=== PATIENT | female | born 1980 | race Two or more races ===

== ENCOUNTER 2022-08-18 21:02 | Inpatient (IN) | payer OTHER, MEDICAID ==
[~2022-08-18] VITALS: Ht 182.9 cm; Wt 84.9 kg
[2022-08-18 22:00] VITALS: BP 130/89
[2022-08-18] MEDS ORDERED: LEVE250T18 PO (23:05)
[2022-08-18] MEDS ORDERED: ALBU108A5 IN (23:05)
[2022-08-18] MEDS ORDERED: GABA-1250 PO (23:05)
[2022-08-18] MEDS ORDERED: BUPR10DI TD (23:05)
[2022-08-18] MEDS ORDERED: OXYC-963 (23:05)
[2022-08-18 23:08] VITALS: BP 130/89
[2022-08-19] MEDS ORDERED: TEMAZEPAM 15 MG CAP PO PRN (03:00)
[2022-08-19] MEDS ORDERED: ONDANSETRON HCL 4 MG/2 ML VIAL IV PRN (03:00)
[2022-08-19] MEDS ORDERED: ACETAMINOPHEN 325 MG TAB PO PRN (03:00)
[2022-08-19] MEDS ORDERED: HYDROcodone-ACET 5/325MG TAB PO PRN (03:00)
[2022-08-19 04:20] LABS: Basophils # (auto) 0.1 10 ^3/uL (0-0.2); Basophils % (auto) 0.7 % (0.0-2.0); Eosinophils # (auto) 0.3 10 ^3/uL (0-0.8); Eosinophils % (auto) 3.1 % (0.0-7.0); Hematocrit 34.9 % (36.0-46.0); Hemoglobin 11.4 g/dL (12.2-16.2); Lymphocytes # (auto) 1.4 10 ^3/uL (0.4-5.4); Lymphocytes % (auto) 15.8 % (10.0-50.0); Mean Corpuscular Hgb Conc. 32.6 g/dL (32.0-36.0); Mean Corpuscular Volume 89.1 fL (80.0-100.0); Monocytes # (auto) 0.9 10 ^3/uL (0-1.3); Monocytes % (auto) 9.6 % (0.0-12.0); Neutrophils # (auto) 6.3 10 ^3/uL (1.6-8.6); Neutrophils % (auto) 70.8 % (37.0-80.0); Red Blood Cells 3.92 10^6/uL (4.0-5.20); Red Cell Distribution Width 14.6 % (11.8-14.3); White Blood Cell 8.9 10^3/uL (4.4-10.8)
[2022-08-19 04:36] LABS: Albumin 2.3 g/dL (3.4-5.0); Potassium 3.9 mmol/L (3.5-5.1)
[2022-08-19 04:42] LABS: BUN/Creatinine Ratio 15.5 (10.0-20.0); Bilirubin, Total 0.2 mg/dL (0.2-1.0); Total Protein 6.4 g/dL (6.4-8.2)
[2022-08-19 05:00] VITALS: BP 125/79
[2022-08-19] MEDS: cefTRIAXone 1GM/50ML D5W 50 ML IV SCH (05:50)
[2022-08-19] MEDS ORDERED: CLINDAMYCIN 600MG IV 50 ML IV SCH (06:00)
[2022-08-19 06:59] LABS: Urine Bacteria NONE SEEN /hpf (None Seen); Urine Blood Negative /uL (Negative); Urine Mucus FEW (None Seen); Urine Specific Gravity 1.019 (1.001-1.035); Urine WBC 1 /hpf (0 - 5)
[2022-08-19 09:05] VITALS: BP 139/93
[2022-08-19] MEDS ORDERED: VANCOMYCIN 1GM/250ML 250 ML IV ONE ×2 (11:15→16:15)
[2022-08-19] MEDS ORDERED: VANCOMYCIN PER PHARMACY 0 MG IV SCH (11:15)
[2022-08-19] MEDS: MORPHINE SULFATE INJ 2 MG/ml SYRG IV PRN ×2 (11:32→20:53)
[2022-08-19 13:13] VITALS: BP 123/84
[2022-08-19] MEDS: GABAPENTIN 300 MG CAP PO SCH ×2 (14:09→21:47)
[2022-08-19 16:44] VITALS: BP 135/78
[2022-08-19] MEDS: OXYCODONE W/ ACETAMINOPHEN 5/325MG TABLET PO PRN (17:40)
[2022-08-19] MEDS: VANCOMYCIN 1GM/250ML 250 ML IV SCH (17:41)
[2022-08-19] MEDS: levETIRAcetam 500 MG TAB PO SCH (21:47)
[2022-08-19 22:00] VITALS: BP 109/69
[2022-08-20] MEDS: OXYCODONE W/ ACETAMINOPHEN 5/325MG TABLET PO PRN (02:51)
[2022-08-20] MEDS: VANCOMYCIN 1GM/250ML 250 ML IV SCH ×3 (02:53→20:52)
[2022-08-20 05:00] VITALS: BP 113/78
[2022-08-20] MEDS: GABAPENTIN 300 MG CAP PO SCH ×3 (05:14→21:01)
[2022-08-20] MEDS: MORPHINE SULFATE INJ 2 MG/ml SYRG IV PRN ×2 (06:25→14:04)
[2022-08-20 07:47] LABS: Calcium 8.3 mg/dL (8.5-10.1)
[2022-08-20 07:49] LABS: BUN/Creatinine Ratio 16.3 (10.0-20.0)
[2022-08-20 09:21] VITALS: BP 106/44
[2022-08-20] MEDS: levETIRAcetam 500 MG TAB PO SCH ×2 (10:53→21:01)
[2022-08-20] MEDS: cefTRIAXone 1GM/50ML D5W 50 ML IV SCH (10:53)
[2022-08-20] MEDS: PANTOPRAZOLE 40 MG TAB PO SCH (10:53)
[2022-08-20] MEDS ORDERED: OXYCODONE W/ ACETAMINOPHEN 5/325MG TABLET PO PRN (12:15)
[2022-08-20 14:46] VITALS: BP 121/75
[2022-08-20 16:00] VITALS: BP 140/94
[2022-08-20 22:00] VITALS: BP 115/73
[2022-08-21] MEDS: MORPHINE SULFATE INJ 2 MG/ml SYRG IV PRN ×2 (02:44→09:38)
[2022-08-21 05:00] VITALS: BP 119/62
[2022-08-21] MEDS: VANCOMYCIN 1GM/250ML 250 ML IV SCH ×2 (05:09→12:58)
[2022-08-21] MEDS: GABAPENTIN 300 MG CAP PO SCH ×2 (05:22→12:58)
[2022-08-21 09:00] VITALS: BP 144/90
[2022-08-21] MEDS: cefTRIAXone 1GM/50ML D5W 50 ML IV SCH (09:37)
[2022-08-21] MEDS: levETIRAcetam 500 MG TAB PO SCH (09:38)
[2022-08-21] MEDS: PANTOPRAZOLE 40 MG TAB PO SCH (09:38)
[2022-08-21 10:08] VITALS: BP 126/68
== END 2022-08-21 16:30 | disposition left against medical advice (07) | DRG 602 ==
LOC: CENTRAL 22:37 → UNDOADMIN 22:37 → CENTRAL 08-19 02:50
PROVIDERS: ADMIT Nurse Practitioner; ATTEND Internal Medicine
DX: L03.114 Cellulitis of left upper limb (principal); G82.50 Quadriplegia, unspecified; G40.909 Epilepsy, unspecified, not intractable, without status epilepticus; G89.29 Other chronic pain; S51.002A Unspecified open wound of left elbow, initial encounter; X58.XXXA Exposure to other specified factors, initial encounter; Z53.21 Procedure and treatment not carried out due to patient leaving prior to being seen by health care provider; J45.909 Unspecified asthma, uncomplicated; S82.832A Other fracture of upper and lower end of left fibula, initial encounter for closed fracture; Z82.49 Family history of ischemic heart disease and other diseases of the circulatory system; Z83.3 Family history of diabetes mellitus; Z98.1 Arthrodesis status; Y93.89 Activity, other specified; Y92.89 Other specified places as the place of occurrence of the external cause; Y99.8 Other external cause status
CPT/HCPCS: 36415; 73600; 73700; 80048; 80053; 80202; 81001; 85025; 87081; G0378; J0696

== ENCOUNTER 2024-02-08 20:23 | Inpatient (IN) | payer MEDICARE, MEDICAID ==
[~2024-02-08] VITALS: Ht 152.4 cm; Wt 96.0 kg
[~2024-02-08 20:23] MED LIST: ALBU108A5 IN; BUPR10DI TD; GABA-1250 PO; LEVE250T18 PO; OXYC-963
--- NOTE | 2024-02-08 20:35 | ED.PDOC ---
History of Present Illness HPI Comments 43-year-old female with PMHx Osteomyelitis brought in by EMS presents with a chief complaint of back pain, incontinence, and numbness to her bilateral legs. Patient states that her back pain started from her ribs bilaterally, travelled down to her hips and down her bilateral legs. Patient reports that her legs feel numb and that she also has not been having control of her bowels and bladder. Patient mentions that she took Tylenol and Motrin, but had no relief of symptoms. Patient denies any trauma. Time Seen by MD: 20:26 Reviewed Notes: Medications, Allergies Allergies: Coded Allergies: NO KNOWN ALLERGIES (Unverified , 08/19/22) Home Meds Reported Medications Albuterol Sulfate (Albuterol Sulfate Hfa) 108 Mcg/Act Aer, 108 MCG IN, AER 08/18/22 Oxycodone W/ Acetaminophen (Oxycodone/Acetaminophen 10-300 mg) 1 Tab Tab 08/18/22 Buprenorphine (BUTRANS) 10 Mcg/Hr Dis, 15 MCG TD QWEEKLY, DIS 08/18/22 Levetiracetam (Keppra) 250 Mg Tab, 250 MG PO BID for 30 Days, MG 08/18/22 Gabapentin (Gabapentin) 300 Mg Cap, 300 MG PO TID for 30 Days, MG 08/18/22 Information Source: Patient Mode of Arrival: EMS Severity: Moderate Timing: Days Duration: Since onset Prehospital treatment: None Past Medical History Past Medical History (Other): Osteomyletis Surgical History: Denies all surgeries VALIDATION MANAGER History: Denies all VALIDATION MANAGER Hx Family History Family History: Reviewed,noncontributory to illness Social History Smoker: Non-Smoker Alcohol: Denies ETOH Use Drugs: Denies Drug Use Lives In: Home Constitutional: denies: chills, diaphoresis, fatigue, fever, malaise, sweats, weakness, others EENTM: denies: blurred vision, double vision, ear bleeding, ear discharge, ear drainage, ear pain, ear ringing, eye pain, eye redness, hearing loss, mouth pain, mouth swelling, nasal discharge, nose bleeding, nose congestion, nose pain, photophobia, tearing, throat pain, throat swelling, voice changes, others Respiratory: denies: cough, hemoptysis, orthopnea, SOB at rest, shortness of breath, SOB with excertion, stridor, wheezing, others Cardiovascular: denies: chest pain, dizzy spells, diaphoresis, Dyspnea on exertion, edema, irregular heart beat, left arm pain, lightheadedness, palpitations, PND, syncope, others Gastrointestinal: denies: abdomen distended, abdominal pain, blood streaked bowels, constipated, diarrhea, dysphagia, difficulty swallowing, hematemesis, melena, nausea, poor appetite, poor fluid intake, rectal bleeding, rectal pain, vomiting, others Genitourinary: reports: incontinence; denies: abnormal vagina bleeding, burning, dyspareunia, dysuria, flank pain, frequency, hematuria, pain, , vagina discharge, urgency, others Neurological: reports: left sided weakness, numbness; denies: dizziness, fainting, headache, left sided numbness, paresthesia, pre-existing deficit, right sided numbness, right sided weakness, seizure, speech problems, tingling, tremors, weakness, others Musculoskeletal: reports: back pain; denies: gout, joint pain, joint swelling, muscle pain, muscle stiffness, neck pain, others Integumetry: denies: bruises, change in color, change in hair/nails, dryness, laceration, lesions, lumps, rash, wounds, others Allergic/Immunocompromised: denies: Difficulty Healing, Frequent Infections, Hives, Itching, others Hematologic/Lymphatic: denies: anemia, blood clots, easy bleeding, easy bruising, swollen glands, others Endocrine: denies: excessive hunger, excessive sweating, excessive thirst, excessive urination, flushing, intolerance to cold, intolerance to heat, unexplained weight gain, unexplained weight loss, others Psychiatric: denies: anxiety, bipolar disorder, depression, hopeless, panic disorder, schizophrenia, sleepless, suicidal, others All Other Systems: Reviewed and Negative Physical Exam General Appearance: No Apparent Distress, Normal HEENT: Normal ENT Inspection, Pharynx Normal, TMs Normal Neck: Full Range of Motion, Non-Tender, Normal, Normal Inspection Respiratory: Chest Non-Tender, Lungs Clear, No Accessory Muscle Use, No Respiratory Distress, Normal Breath Sounds Cardiovascular: No Edema, No JVD, No Murmur, No Gallop, Normal Peripheral Pulses, Regular Rate/Rhythm Breast Exam: Deferred Gastrointestinal: No Organomegaly, Non Tender, No Pulsatile Mass, Normal Bowel Sounds, Soft Genitalia: Deferred Pelvic: Deferred Rectal: Deferred Extremities: No calf tenderness, Normal capillary refill, Normal inspection, Normal range of motion, Non-tender, No pedal edema Musculoskeletal : Apperance: Normal Neurologic: Alert, 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 Was a procedure done?: No Differential Dx Considerations may include: Muscle spasm, spinal epidural abscess, cauda equina, lumbar fracture X-Ray, Labs, Meds, VS Vital Signs Date Time Temp Pulse Resp B/P (MAP) Pulse Ox O2 Delivery O2 Flow Rate FiO2 02/08/24 22:57 95 20 140/92 02/08/24 22:09 86 13 140/92 02/08/24 21:45 99 22 96 Room Air 02/08/24 21:45 99 22 146/92 (110) 96 02/08/24 20:35 98.9 120 18 148/100 (116) 100 Lab Test 02/08/24 20:47 Range/Units White Blood Count 7.5 4.4-10.8 10^3/uL Red Blood Count 4.58 4.0-5.20 10^6/uL Hemoglobin 13.5 12.2-16.2 g/dL Hematocrit 40.6 36.0-46.0 % Mean Corpuscular Volume 88.7 80.0-100.0 fL Mean Corpuscular Hemoglobin 29.4 28.0-32.0 pg Mean Corpuscular Hemoglobin Concent 33.2 32.0-36.0 g/dL Red Cell Distribution Width 16.3 H 11.8-14.3 % Platelet Count 210 140-450 10^3/uL Mean Platelet Volume 8.9 6.9-10.8 fL Neutrophils (%) (Auto) 69.9 37.0-80.0 % Lymphocytes (%) (Auto) 18.9 10.0-50.0 % Monocytes (%) (Auto) 7.7 0.0-12.0 % Eosinophils (%) (Auto) 2.4 0.0-7.0 % Basophils (%) (Auto) 1.1 0.0-2.0 % Neutrophils # (Auto) 5.2 1.6-8.6 10 ^3/uL Lymphocytes # (Auto) 1.4 0.4-5.4 10 ^3/uL Monocytes # (Auto) 0.6 0-1.3 10 ^3/uL Eosinophils # (Auto) 0.2 0-0.8 10 ^3/uL Basophils # (Auto) 0.1 0-0.2 10 ^3/uL Nucleated Red Blood Cells 0.1 % Sodium Level 138 136-145 mmol/L Potassium Level 3.8 3.5-5.1 mmol/L Chloride Level 105 98-107 mmol/L Carbon Dioxide Level 22 20-31 mmol/L Anion Gap 11 5-15 Blood Urea Nitrogen 10 9-23 mg/dL Creatinine 0.76 0.550-1.02 mg/dL Glomerular Filtration Rate Calc 100 >90 mL/min BUN/Creatinine Ratio 13.2 10.0-20.0 Serum Glucose 87 74-106 mg/dL Calcium Level 9.3 8.7-10.4 mg/dL Plasma/Serum Blood Alcohol 77.8 H <10 mg/dL Current Medications Medications (Trade) Dose Ordered Sig/Vazquez Route Start Time Stop Time Status Last Admin Morphine Sulfate 4 mg ONCE ONCE IV 02/08/24 21:30 02/08/24 21:31 DC 02/08/24 22:09 Ondansetron HCl (Zofran) 4 mg ONCE ONCE IV 02/08/24 21:30 02/08/24 21:31 DC 02/08/24 22:08 Time of 1ST Reevaluation: 20:56 Reevaluation 1ST: Unchanged Patient Education/Counseling: Diagnosis, Treatment, Prognosis Family Education/Counseling: No Family Present Departure 1 Departure Time of Disposition: 01:07 (Patient with a worsening lower back pain inability to ambulate and fecal incontinence. Patient has symptoms concerning for possible cauda equina syndrome. We will admit patient for a stat MRI pain control and further workup and expert consultation.) Impression: Primary Impression: Lumbar pain Additional Impressions: Weakness Alcohol intoxication Qualified Codes: F10.920 - Alcohol use, unspecified with intoxication, uncomplicated Disposition: ADMITTED INPATIENT Admit to: Med Surg Condition: Serious Critical Care Note Critical Care Time?: No Stability Stability form required: No I personally scribed for HOMAR GARZON MD ([email or web address]) on 02/08/24 at 20:35. Electronically submitted by Nilesh Main ([email or web address]). HOAMR GARZON MD Feb 08, 2024 20:35
[2024-02-08 21:01] LABS: Basophils # (auto) 0.1 10 ^3/uL (0-0.2); Basophils % (auto) 1.1 % (0.0-2.0); Eosinophils # (auto) 0.2 10 ^3/uL (0-0.8); Eosinophils % (auto) 2.4 % (0.0-7.0); Hematocrit 40.6 % (36.0-46.0); Hemoglobin 13.5 g/dL (12.2-16.2); Lymphocytes # (auto) 1.4 10 ^3/uL (0.4-5.4); Lymphocytes % (auto) 18.9 % (10.0-50.0); Mean Corpuscular Hemoglobin 29.4 pg (28.0-32.0); Mean Corpuscular Hgb Conc. 33.2 g/dL (32.0-36.0); Mean Corpuscular Volume 88.7 fL (80.0-100.0); Monocytes # (auto) 0.6 10 ^3/uL (0-1.3); Monocytes % (auto) 7.7 % (0.0-12.0); Neutrophils # (auto) 5.2 10 ^3/uL (1.6-8.6); Neutrophils % (auto) 69.9 % (37.0-80.0); Nucleated Red Blood Cells % 0.1 %; Platelet Count (auto) 210 10^3/uL (140-450); Red Blood Cells 4.58 10^6/uL (4.0-5.20); Red Cell Distribution Width 16.3 % (11.8-14.3); White Blood Cell 7.5 10^3/uL (4.4-10.8)
[2024-02-08 21:32] LABS: Chloride 105 mmol/L (98-107); Potassium 3.8 mmol/L (3.5-5.1); Sodium 138 mmol/L (136-145)
[2024-02-08 21:33] LABS: Anion Gap 11 (5-15); Carbon Dioxide 22 mmol/L (20-31)
[2024-02-08 21:34] LABS: Calcium 9.3 mg/dL (8.7-10.4)
[2024-02-08 21:39] LABS: BUN/Creatinine Ratio 13.2 (10.0-20.0); Blood Alcohol 77.8 mg/dL (<10); Blood Urea Nitrogen 10 mg/dL (9-23); Glucose 87 mg/dL (74-106)
[2024-02-08] MEDS: ONDANSETRON HCL 4 MG/2 ML VIAL IV ONE (22:08)
[2024-02-08] MEDS: MORPHINE SULFATE 4 MG/ML SYR/VIAL IV ONE (22:09)
--- NOTE | 2024-02-08 22:58 | DVH ---
CHEST RADIOGRAPH Indication: weakness Technique: Single frontal view of the chest was obtained COMPARISON: None FINDINGS: Lines and Tubes: None Lungs: Clear Pleura: No effusion. No pneumothorax. Cardiomediastinal contours: Unremarkable Bones: Cervical fixation hardware is seen. IMPRESSION: 1. No acute disease.
--- NOTE | 2024-02-08 23:14 | DVH ---
CT OF THE LUMBAR SPINE WITHOUT CONTRAST HISTORY: lower back pain with numbness, tingling, and bowel incont COMPARISON: None TECHNIQUE: Thin section helical axial scans of the lumbar spine obtained. Sagittal and coronal reform atted images were performed. One or more of the following radiation dose reduction techniques were us ed for this examination: automated exposure control, adjustment of the mA and/or kV according to alia ent size, use of iterative reconstruction technique. FINDINGS: Infrarenal IVC filter is noted. No grossly displaced fractures or subluxations identified. Vertebral body heights are maintained. Th e bony spinal canal is grossly patent. Mild multilevel disc space narrowing with marginal osteophyte formation is noted. This is most prominent at L4-L5 and L5-S1. Large fat containing lesion partially imaged in the pelvis measures approximately 10 cm in diameter . IMPRESSION: No grossly displaced fractures or subluxations identified. Multilevel degenerative changes. Follow-up lumbar spine MRI may be obtained to further evaluate. Large fat containing lesion in the pelvis may represent a large dermoid. Correlate with clinical hist ory as well as any available prior imaging. Follow-up ultrasound/ MRI is recommended to further evalu ate.
[2024-02-09] MEDS: diazePAM 5 MG TAB PO ONE (01:23)
[2024-02-09 01:38] LABS: Urine Bacteria FEW /hpf (None Seen); Urine Blood Negative /uL (Negative); Urine Clarity Turbid (Clear); Urine Color Light-Yellow (Yellow); Urine Mucus FEW (None Seen); Urine Protein, UAD Negative (Negative); Urine Specific Gravity 1.026 (1.001-1.035); Urine Squamous Epithelial Cell FEW /hpf (<5); Urine Urobilinogen Normal (Negative); Urine WBC 1 /hpf (0 - 5); Urine pH 6.5 (5.0-9.0)
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
[2024-02-09 02:45] LABS: Amphetamine Screen, Urine Pos (NEGATIVE); Barbiturate Scree,Urine Neg (NEGATIVE); Benzodiazephine Screen, Urine Neg (NEGATIVE); Cannabinoid Screen, Urine Pos (NEGATIVE); Cocaine Screen, Urine Neg (NEGATIVE); Opiate Scree,Urine Pos (NEGATIVE); Phencyclidine Screen, Urine Neg (NEGATIVE)
[2024-02-09] MEDS: cefTRIAXone 1GM/50ML D5W 50 ML IV ONE (03:22)
[2024-02-09] MEDS: GABAPENTIN 300 MG CAP PO SCH (05:11)
[2024-02-09] MEDS: HYDROcodone-ACET 10/325MG TAB PO SCH (05:11)
[2024-02-09 08:42] VITALS: PULSE 96; RESP 24; O2SAT 97
[2024-02-09] MEDS ORDERED: LORazepam 2MG/ML-1ML VIAL IV PRN (09:15)
[2024-02-09] MEDS: ONDANSETRON HCL 4 MG/2 ML VIAL IV ONE (09:46)
[2024-02-09] MEDS: cefTRIAXone 1GM/50ML D5W 50 ML IV SCH (10:56)
[2024-02-09] MEDS: ENOXAPARIN SOD 40 MG/0.4 ML SYRINGE SC SCH (10:57)
[2024-02-09] MEDS: levETIRAcetam 500 MG TAB PO SCH (10:57)
[2024-02-09] MEDS: PANTOPRAZOLE 40 MG TAB PO SCH (10:57)
[2024-02-09] MEDS ORDERED: ONDANSETRON HCL 4 MG/2 ML VIAL IV PRN (11:00)
--- NOTE | 2024-02-09 11:15 | DVH ---
MRI LUMBAR SPINE CLINICAL HISTORY: Lumbar radiculopathy with incontinence TECHNIQUE: Multi planar, multi sequence MR images of the lumbar spine without intravenous contrast. Comparison: CT LS SPINE WO CONTRAST on DOS: 02/08/24 FINDINGS: There is mild irregularity and depression of the posterior margins of the S1 superior endplate with u nderlying marrow edema. This May relate to an acute to subacute fracture versus broad Schmorl's node formation. The lumbar vertebral bodies demonstrate normal height and marrow signal. The conus terminates at an appropriate level and demonstrates normal caliber and signal. . The sagitt al alignment is anatomic. There is multilevel disc desiccation with disc space narrowing at L5-S1. Pa raspinal soft tissues appear within normal limits. At L1-L2 and L2-L3 there is no significant disc herniation. There is no canal or significant foramin al stenosis. At L3-L4 there is mild bilateral facet arthropathy and minimal disc bulge. There is no spinal canal o r significant foraminal stenosis. At L4-L5 there is disc bulge and moderate bilateral facet arthropathy, [id number]. There is flattening of the ventral thecal sac without significant canal stenosis. There is moderate left a nd mild right neural foraminal stenosis. At L5-S1 there is disc bulge with superimposed 3 mm broad-based right paracentral disc protrusion. Th ere is mild facet arthropathy. There is no significant central canal stenosis. The protruding disc abuts the descending right S1 nerve root without compression. There is mild right neural foraminal st enosis. IMPRESSION: 1. There is mild irregularity and depression of the posterior margins of the S1 superior endplate wit h underlying marrow edema. This May relate to an acute to subacute fracture versus broad Schmorl's no alice formation. 2. Multilevel degenerative changes in the lower lumbar spine as described details above. HS:Y
[2024-02-09] MEDS: MORPHINE SULFATE INJ 2 MG/ml SYRG IV PRN (11:18)
[2024-02-09 12:41] LABS: Magnesium 1.8 mg/dL (1.6-2.6); Phosphorus 3.6 mg/dL (2.4-5.1)
[2024-02-09 12:45] LABS: Alanine Aminotransferase 55 U/L (7-40); Aspartate Aminotransferase 75 U/L (13-40)
[2024-02-09] MEDS: FOLIC ACID 1 MG, MAGNESIUM SULF SDV 50% 8 MEQ, MULTIPLE VITAMIN 10 ML, THIAMINE INJ 100... INJ SCH (17:45)
[2024-02-09 19:20] VITALS: BP 97/54; PULSE 63; RESP 17; TEMP 97.7; O2SAT 95
[2024-02-09 21:00] VITALS: BP 140/87; PULSE 73; RESP 19; TEMP 97.6; O2SAT 98
[2024-02-09 21:06] VITALS: RESP 16
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
[2024-02-10] VITALS (7 sets, daily range): BP systolic 115–169; BP diastolic 61–98; PULSE 64–85; RESP 17–18; TEMP 97.3–98.5; O2SAT 96–100
[2024-02-10 06:32] LABS: INR 0.99 (0.9-1.15); Prothrombin Time 10.5 sec (9.3-11.8)
[2024-02-10 06:40] LABS: Albumin 3.5 g/dL (3.2-4.8); Alkaline Phosphatase 74 U/L (46-116); Anion Gap 5 (5-15); BUN/Creatinine Ratio 12.3 (10.0-20.0); Blood Urea Nitrogen 10 mg/dL (9-23); Calcium 9.1 mg/dL (8.7-10.4); Carbon Dioxide 27 mmol/L (20-31); Chloride 107 mmol/L (98-107); Glucose 95 mg/dL (74-106); Potassium 4.1 mmol/L (3.5-5.1); Sodium 139 mmol/L (136-145)
[2024-02-10 06:41] LABS: Bilirubin, Total 0.3 mg/dL (0.2-1.0); Total Protein 6.3 g/dL (5.7-8.2)
[2024-02-10 06:45] LABS: Alanine Aminotransferase 47 U/L (7-40); Aspartate Aminotransferase 61 U/L (13-40)
[2024-02-10 06:46] LABS: Basophils # (auto) 0 10 ^3/uL (0-0.2); Basophils % (auto) 0.7 % (0.0-2.0); Eosinophils # (auto) 0.2 10 ^3/uL (0-0.8); Eosinophils % (auto) 3.1 % (0.0-7.0); Hematocrit 38.5 % (36.0-46.0); Hemoglobin 12.8 g/dL (12.2-16.2); Lymphocytes # (auto) 1.2 10 ^3/uL (0.4-5.4); Lymphocytes % (auto) 23.7 % (10.0-50.0); Mean Corpuscular Hemoglobin 29.7 pg (28.0-32.0); Mean Corpuscular Hgb Conc. 33.1 g/dL (32.0-36.0); Mean Corpuscular Volume 89.8 fL (80.0-100.0); Monocytes # (auto) 0.4 10 ^3/uL (0-1.3); Neutrophils # (auto) 3.1 10 ^3/uL (1.6-8.6); Neutrophils % (auto) 63.5 % (37.0-80.0); Platelet Count (auto) 164 10^3/uL (140-450); Red Blood Cells 4.29 10^6/uL (4.0-5.20); Red Cell Distribution Width 16.4 % (11.8-14.3); White Blood Cell 4.9 10^3/uL (4.4-10.8)
[2024-02-10] MEDS: FOLIC ACID 1 MG TAB PO SCH (11:13)
[2024-02-10] MEDS: THIAMINE HCL 100 MG TAB PO SCH (11:13)
[2024-02-10] MEDS: MULTIPLE VITAMINS W/ MINERALS TAB PO SCH (11:15)
[2024-02-10] MEDS: MAGNESIUM OXIDE 400 MG TAB PO ONE (18:25)
--- NOTE | 2024-02-10 23:51 | DVHPN2 ---
Progress Note - Dictate Date Seen: Feb 10, 2024 Medical Necessity Reason Pt with a Central, PICC or Fol: No Subjective Patient was seen and evaluated in follow up. Patient is complaining of back pain. AST 61, ALT 47. MRI L-spine shows mild irregularity and depression of the posterior margins of the S1 superior endplate with underlying marrow edema. Multilevel degenerative changes in the lower lumbar spine. Prelim blood cultures show no growth. vital signs Vital Sign Date Time Temp Pulse Resp B/P (MAP) Pulse Ox O2 Delivery O2 Flow Rate FiO2 02/10/24 21:00 98.4 85 17 115/61 (79) 100 98.4 02/10/24 20:10 Room Air* 0 21 Total Intake and Output 02/09/24 02/09/24 02/10/24 15:00 23:00 07:00 Intake Total 50 ml 126.247 ml 1286.953 ml Output Total 480 ml Balance 50 ml 126.247 ml 806.953 ml medications Current Medications Medications Dose Ordered Sig/Vazquez Route Start Time Stop Time Status Last Admin Dose Admin Ceftriaxone Sodium 50 ml @ 100 mls/hr DAILY IV 02/09/24 10:00 02/10/24 11:09 100 MLS/HR Acetaminophen/ Hydrocodone Bitart 1 tab Q6HR PO 02/09/24 06:00 02/10/24 18:25 1 TAB Levetiracetam 250 mg BID PO 02/09/24 10:00 02/10/24 21:37 250 MG Gabapentin 300 mg TID PO 02/09/24 06:00 02/10/24 21:37 300 MG Enoxaparin Sodium 40 mg DAILY SC 02/09/24 10:00 02/10/24 11:16 40 MG Pantoprazole Sodium 40 mg DAILY PO 02/09/24 10:00 02/10/24 11:15 40 MG Lorazepam 1 mg Q2HPRN PRN IV 02/09/24 09:15 Thiamine HCl 100 mg DAILY PO 02/10/24 10:00 02/10/24 11:13 100 MG Folic Acid 1 mg DAILY PO 02/10/24 10:00 02/10/24 11:13 1 MG Multivitamins/ Minerals 1 tab DAILY PO 02/10/24 10:00 02/10/24 11:15 1 TAB Morphine Sulfate 2 mg Q6HPRN PRN IV 02/09/24 11:00 02/09/24 11:18 2 MG Ondansetron HCl 4 mg Q6HPRN PRN IV 02/09/24 11:00 Magnesium Oxide 400 mg DAILY PO 02/11/24 10:00 objective GENERAL: Awake, alert, oriented. LUNGS: Clear. CARDIOVASCULAR: Heart sounds are good. ABDOMEN: Soft. laboratory and microbiology Laboratory Tests 02/10/24 05:43 Test 02/10/24 05:43 Range/Units Serum Glucose 95 74-106 mg/dL Problem List Lumbar radiculopathy. Acute cystitis. History of seizure disorder. Asymptomatic dermoid cyst. Alcohol and polysubstance abuse disorder. Assessment/Plan Continued all current supportive medical care. [place] for pain management. IV antibiotics as ordered. DVT and GI prophylactics. Raudel Thomas. Tacos. Additional plan as per the hospital course. Plan discussed with: Patient SYLVESTER THOMPSON MD Feb 10, 2024 23:51
[2024-02-11] VITALS (8 sets, daily range): BP systolic 111–155; BP diastolic 66–98; PULSE 60–82; RESP 16–20; TEMP 98–98.9; O2SAT 95–99
[2024-02-11] MEDS: MAGNESIUM OXIDE 400 MG TAB PO SCH (10:24)
--- NOTE | 2024-02-11 13:41 | DVHPN2 ---
Progress Note - Dictate Date Seen: Feb 11, 2024 Medical Necessity Reason Pt with a Central, PICC or Fol: No Subjective Patient was seen and evaluated in follow up. Patient is complaining of 4/10 back pain. Pending urology evaluation. Urine culture grew >100,000 CFU/mL Mixed [place]. vital signs Vital Sign Date Time Temp Pulse Resp B/P (MAP) Pulse Ox O2 Delivery O2 Flow Rate FiO2 02/11/24 12:44 98.5 68 17 111/74 (86) 95 98.5 02/11/24 08:20 Room Air* 0 21 Total Intake and Output 02/10/24 02/10/24 02/11/24 15:00 23:00 07:00 Intake Total 50 ml 1190 ml 400 ml Output Total 450 ml 1600 ml Balance 50 ml 740 ml -1200 ml medications Current Medications Medications Dose Ordered Sig/Vazquez Route Start Time Stop Time Status Last Admin Dose Admin Ceftriaxone Sodium 50 ml @ 100 mls/hr DAILY IV 02/09/24 10:00 02/11/24 10:29 100 MLS/HR Acetaminophen/ Hydrocodone Bitart 1 tab Q6HR PO 02/09/24 06:00 02/11/24 12:06 1 TAB Levetiracetam 250 mg BID PO 02/09/24 10:00 02/11/24 10:26 250 MG Gabapentin 300 mg TID PO 02/09/24 06:00 02/11/24 05:22 300 MG Enoxaparin Sodium 40 mg DAILY SC 02/09/24 10:00 02/11/24 10:27 40 MG Pantoprazole Sodium 40 mg DAILY PO 02/09/24 10:00 02/11/24 10:23 40 MG Lorazepam 1 mg Q2HPRN PRN IV 02/09/24 09:15 Thiamine HCl 100 mg DAILY PO 02/10/24 10:00 02/11/24 10:24 100 MG Folic Acid 1 mg DAILY PO 02/10/24 10:00 02/11/24 10:26 1 MG Multivitamins/ Minerals 1 tab DAILY PO 02/10/24 10:00 02/11/24 10:23 1 TAB Morphine Sulfate 2 mg Q6HPRN PRN IV 02/09/24 11:00 02/09/24 11:18 2 MG Ondansetron HCl 4 mg Q6HPRN PRN IV 02/09/24 11:00 Magnesium Oxide 400 mg DAILY PO 02/11/24 10:00 02/11/24 10:24 400 MG objective GENERAL: Awake, alert, oriented. LUNGS: Clear. CARDIOVASCULAR: Heart sounds are good. ABDOMEN: Soft. laboratory and microbiology Laboratory Tests 02/10/24 05:43 Test 02/10/24 05:43 Range/Units Serum Glucose 95 74-106 mg/dL Problem List Lumbar radiculopathy. Acute cystitis. History of seizure disorder. Asymptomatic dermoid cyst. Alcohol and polysubstance abuse disorder. Assessment/Plan Continued all current supportive medical care. [place] for pain management. IV antibiotics as ordered. DVT and GI prophylactics. Raudel Thomas. Tacos. Additional plan as per the hospital course. Plan discussed with: Patient SYLVESTER THOMPSON MD Feb 11, 2024 13:12
[2024-02-11] MEDS: MORPHINE SULFATE INJ 2 MG/ml SYRG IV PRN (16:41)
[2024-02-11] MEDS: CYCLOBENZAPRINE HCL 10 MG TAB PO SCH (21:58)
[2024-02-12] VITALS (8 sets, daily range): BP systolic 99–138; BP diastolic 56–82; PULSE 68–88; RESP 16–20; TEMP 97.8–98.7; O2SAT 95–98
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
--- NOTE | 2024-02-12 12:26 | DVHPN2 ---
Progress Note - Dictate Date Seen: Feb 12, 2024 Medical Necessity Reason Pt with a Central, PICC or Fol: No Subjective Patient was seen and evaluated in follow up. Patient is complaining of back pain. No new labs since 02/09. Pending evaluation with Dr. Almaraz. vital signs Vital Sign Date Time Temp Pulse Resp B/P (MAP) Pulse Ox O2 Delivery O2 Flow Rate FiO2 02/12/24 09:00 98.7 82 18 99/56 (70) 97 98.7 02/12/24 08:11 Room Air* 0 21 Total Intake and Output 02/11/24 02/11/24 02/12/24 15:00 23:00 07:00 Intake Total 50 ml 975 ml 740 ml Output Total 650 ml 750 ml Balance 50 ml 325 ml -10 ml medications Current Medications Medications Dose Ordered Sig/Vazquez Route Start Time Stop Time Status Last Admin Dose Admin Ceftriaxone Sodium 50 ml @ 100 mls/hr DAILY IV 02/09/24 10:00 02/12/24 09:20 100 MLS/HR Acetaminophen/ Hydrocodone Bitart 1 tab Q6HR PO 02/09/24 06:00 02/12/24 11:12 1 TAB Levetiracetam 250 mg BID PO 02/09/24 10:00 02/12/24 09:21 250 MG Gabapentin 300 mg TID PO 02/09/24 06:00 02/12/24 05:17 300 MG Enoxaparin Sodium 40 mg DAILY SC 02/09/24 10:00 02/12/24 09:21 40 MG Pantoprazole Sodium 40 mg DAILY PO 02/09/24 10:00 02/12/24 09:21 40 MG Lorazepam 1 mg Q2HPRN PRN IV 02/09/24 09:15 Thiamine HCl 100 mg DAILY PO 02/10/24 10:00 02/12/24 09:21 100 MG Folic Acid 1 mg DAILY PO 02/10/24 10:00 02/12/24 09:20 1 MG Multivitamins/ Minerals 1 tab DAILY PO 02/10/24 10:00 02/12/24 09:20 1 TAB Ondansetron HCl 4 mg Q6HPRN PRN IV 02/09/24 11:00 Magnesium Oxide 400 mg DAILY PO 02/11/24 10:00 02/12/24 09:20 400 MG Morphine Sulfate 2 mg Q3HPRN PRN IV 02/11/24 15:30 02/11/24 21:59 2 MG Cyclobenzaprine HCl 10 mg TID PO 02/11/24 22:00 02/12/24 05:17 10 MG objective GENERAL: Awake, alert, oriented. LUNGS: Clear. CARDIOVASCULAR: Heart sounds are good. ABDOMEN: Soft. laboratory and microbiology Laboratory Tests 02/10/24 05:43 Test 02/10/24 05:43 Range/Units Serum Glucose 95 74-106 mg/dL Problem List Lumbar radiculopathy. Acute cystitis. History of seizure disorder. Asymptomatic dermoid cyst. Alcohol and polysubstance abuse disorder. Assessment/Plan Continued all current supportive medical care. [place] for pain management. IV antibiotics as ordered. DVT and GI prophylactics. Raudel Thomas. [place]. Additional plan as per the hospital course. Plan discussed with: Patient SYLVESTER THOMPSON MD Feb 12, 2024 11:56
[2024-02-13 05:00] VITALS: BP 95/69; PULSE 83; RESP 18; TEMP 98; O2SAT 97
[2024-02-13 09:00] VITALS: BP 102/62; PULSE 70; RESP 20; TEMP 98.1; O2SAT 98
[2024-02-13 13:00] VITALS: BP 105/61; PULSE 70; RESP 18; TEMP 98.2; O2SAT 96
--- NOTE | 2024-02-13 14:58 | DVHPN2 ---
Progress Note - Dictate Date Seen: Feb 13, 2024 Medical Necessity Reason Pt with a Central, PICC or Fol: No Subjective Patient was seen and evaluated in follow up. Patient is complaining of back pain. WBC stool returned negative for WBCs. MRI C-spine is ordered. vital signs Vital Sign Date Time Temp Pulse Resp B/P (MAP) Pulse Ox O2 Delivery O2 Flow Rate FiO2 02/13/24 10:23 84 18 108/63 02/13/24 09:00 98.1 98 98.1 02/13/24 07:45 Room Air* 0 21 Total Intake and Output 02/12/24 02/12/24 02/13/24 15:00 23:00 07:00 Intake Total 50 ml 500 ml 350 ml Output Total 500 ml 950 ml Balance 50 ml 0 ml -600 ml medications Current Medications Medications Dose Ordered Sig/Vazquez Route Start Time Stop Time Status Last Admin Dose Admin Ceftriaxone Sodium 50 ml @ 100 mls/hr DAILY IV 02/09/24 10:00 02/13/24 08:54 100 MLS/HR Acetaminophen/ Hydrocodone Bitart 1 tab Q6HR PO 02/09/24 06:00 02/13/24 05:16 1 TAB Levetiracetam 250 mg BID PO 02/09/24 10:00 02/13/24 08:55 250 MG Gabapentin 300 mg TID PO 02/09/24 06:00 02/13/24 05:16 300 MG Enoxaparin Sodium 40 mg DAILY SC 02/09/24 10:00 02/13/24 08:56 40 MG Pantoprazole Sodium 40 mg DAILY PO 02/09/24 10:00 02/13/24 08:55 40 MG Lorazepam 1 mg Q2HPRN PRN IV 02/09/24 09:15 Thiamine HCl 100 mg DAILY PO 02/10/24 10:00 02/13/24 08:55 100 MG Folic Acid 1 mg DAILY PO 02/10/24 10:00 02/13/24 08:55 1 MG Multivitamins/ Minerals 1 tab DAILY PO 02/10/24 10:00 02/13/24 08:54 1 TAB Ondansetron HCl 4 mg Q6HPRN PRN IV 02/09/24 11:00 Magnesium Oxide 400 mg DAILY PO 02/11/24 10:00 02/13/24 08:55 400 MG Morphine Sulfate 2 mg Q3HPRN PRN IV 02/11/24 15:30 02/13/24 10:23 2 MG Cyclobenzaprine HCl 10 mg TID PO 02/11/24 22:00 02/13/24 05:16 10 MG objective GENERAL: Awake, alert, oriented. LUNGS: Clear. CARDIOVASCULAR: Heart sounds are good. ABDOMEN: Soft. laboratory and microbiology Laboratory Tests 02/10/24 05:43 Test 02/10/24 05:43 Range/Units Serum Glucose 95 74-106 mg/dL Problem List Lumbar radiculopathy. Acute cystitis. History of seizure disorder. Asymptomatic dermoid cyst. Alcohol and polysubstance abuse disorder. Irregularity and depression of the posterior margins of the S1 superior endplate with underlying marrow edema. DDD of lumbar spin mild. Assessment/Plan Continued all current supportive medical care. Morphine and [place] for pain management. IV antibiotics with Rocephin. DVT and GI prophylactics. Folic acid. Raudel Thomas. Zofran. Thiamine. Additional plan as per the hospital course. Plan discussed with: Patient SYLVESTER THOMPSON MD Feb 13, 2024 12:31
--- NOTE | 2024-02-13 16:22 | DVH ---
MRI CERVICAL SPINE CLINICAL HISTORY: eval of old surgical hardware Comparison: None Technique: Multi planar, multi sequence MR images of the cervical spine without intravenous contrast. FINDINGS: There are postsurgical changes with discectomy and anterior interbody hardware fusion of the C5-C6 le isaiah. There is moderate susceptibility artifact associated with the fusion hardware. The cervical cord demonstrates decreased caliber at the surgical level with a small syrinx measuring 2 mm in diameter and 9 mm in length. The remainder of the cervical cord demonstrates normal caliber a nd signal. The visualized posterior fossa contents appear unremarkable. The craniocervical junction i s within normal limits. The vertebral body heights and bone marrow signal are appropriate. The sagitt al alignment is anatomic. There is disc desiccation with disc height loss at C4-C5 and C6-C7. At C2-C3 there is mild disc bulge without canal or significant foraminal stenosis. At C3-C4 there is bilateral facet arthropathy and mild disc bulge. There is no canal or significant f oraminal stenosis. At C4-C5 there is posterior disc osteophyte complex eccentric to the left and bilateral uncovertebral arthropathy, left greater than right. There is bilateral facet arthropathy. There is no significant spinal canal stenosis. There is severe left and mild right neural foraminal stenosis. At C5-C6 there is anterior and interbody hardware fusion. There is no canal or significant foraminal stenosis. At C6-C7 there is posterior disc osteophyte complex and bilateral uncovertebral arthropathy. There is no spinal canal stenosis. There is moderate to severe bilateral neural foraminal stenosis. At C7-T1 there is bilateral facet arthropathy. There is no spinal canal or significant foraminal sten osis. IMPRESSION: 1. Postsurgical changes related to ACDF at the C5-C6 level. 2. The cervical cord demonstrates decreased caliber at the surgical level with a small syrinx measuri ng 2 mm in diameter. These likely relate to changes of compressive myelopathy. 3. Multilevel degenerative changes in the cervical spine as described by levels above. HS:Y
[2024-02-13 16:44] VITALS: BP 110/70; PULSE 74; RESP 18; TEMP 98; O2SAT 100
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
[2024-02-13 20:00] VITALS: PULSE 74; RESP 18
[2024-02-13 21:00] VITALS: BP 104/65; PULSE 74; RESP 18; TEMP 98.7; O2SAT 92
[2024-02-14 01:00] VITALS: BP 106/69; PULSE 85; RESP 18; TEMP 97.9; O2SAT 97
[2024-02-14 08:31] VITALS: BP 96/63; PULSE 85; RESP 16; TEMP 97.9; O2SAT 97
[2024-02-14 12:57] VITALS: BP 93/61; PULSE 84; RESP 16; TEMP 98.1; O2SAT 98
--- NOTE | 2024-02-14 14:19 | MEDREC ---
[facility] ASP Intervention Section I [facility] ASP Intervention: Deescalate AB based on CS (PATIENT IS AFEBRILE. THE FINAL BLOOD CULTURE HAS NO GROWTH. THE FINAL URINE CULTURE HAS >3 COLONY TYPES, POSSBILY CONTAMINATED. PLEASE CONSIDER DISCONTINUING CEFTRAIXONE (DAY 6) IF THERE IS NO MORE CONCERN FOR INFECTION) ROSY STILES Feb 14, 2024 14:19
--- NOTE | 2024-02-14 16:44 | DVHPN2 ---
Progress Note - Dictate Date Seen: Feb 14, 2024 Medical Necessity Reason Pt with a Central, PICC or Fol: No Subjective Patient was seen and evaluated in follow up. Patient is complaining of back and neck pain. MRI C-Spine shows postsurgical changes related to ACDF at the C5-C6 level. The cervical cord demonstrates decreased caliber at the surgical level with a small syrinx measuring 2 mm in diameter. vital signs Vital Sign Date Time Temp Pulse Resp B/P (MAP) Pulse Ox O2 Delivery O2 Flow Rate FiO2 02/14/24 12:57 98.1 84 16 93/61 (72) 98 98.1 02/14/24 08:00 Room Air* 0 21 Total Intake and Output 02/13/24 02/13/24 02/14/24 15:00 23:00 07:00 Intake Total 780 ml 300 ml Output Total 1500 ml 800 ml Balance -720 ml -500 ml medications Current Medications Medications Dose Ordered Sig/Vazquez Route Start Time Stop Time Status Last Admin Dose Admin Ceftriaxone Sodium 50 ml @ 100 mls/hr DAILY IV 02/09/24 10:00 02/14/24 09:30 100 MLS/HR Acetaminophen/ Hydrocodone Bitart 1 tab Q6HR PO 02/09/24 06:00 02/14/24 12:16 1 TAB Levetiracetam 250 mg BID PO 02/09/24 10:00 02/14/24 09:32 250 MG Gabapentin 300 mg TID PO 02/09/24 06:00 02/14/24 14:05 300 MG Enoxaparin Sodium 40 mg DAILY SC 02/09/24 10:00 02/14/24 09:33 40 MG Pantoprazole Sodium 40 mg DAILY PO 02/09/24 10:00 02/14/24 09:33 40 MG Lorazepam 1 mg Q2HPRN PRN IV 02/09/24 09:15 Thiamine HCl 100 mg DAILY PO 02/10/24 10:00 02/14/24 09:31 100 MG Folic Acid 1 mg DAILY PO 02/10/24 10:00 02/14/24 09:31 1 MG Multivitamins/ Minerals 1 tab DAILY PO 02/10/24 10:00 02/14/24 09:32 1 TAB Ondansetron HCl 4 mg Q6HPRN PRN IV 02/09/24 11:00 Magnesium Oxide 400 mg DAILY PO 02/11/24 10:00 02/14/24 09:32 400 MG Morphine Sulfate 2 mg Q3HPRN PRN IV 02/11/24 15:30 02/14/24 02:56 2 MG Cyclobenzaprine HCl 10 mg TID PO 02/11/24 22:00 02/14/24 14:05 10 MG objective GENERAL: Awake, alert, oriented. LUNGS: Clear. CARDIOVASCULAR: Heart sounds are good. ABDOMEN: Soft. laboratory and microbiology Laboratory Tests 02/10/24 05:43 Test 02/10/24 05:43 Range/Units Serum Glucose 95 74-106 mg/dL Problem List Lumbar radiculopathy. Acute cystitis. History of seizure disorder. Asymptomatic dermoid cyst. Alcohol and polysubstance abuse disorder. Irregularity and depression of the posterior margins of the S1 superior endplate with underlying marrow edema. DDD of lumbar spin mild. Assessment/Plan Continued all current supportive medical care. Morphine and [place] for pain management. IV antibiotics with Rocephin. DVT and GI prophylactics. Folic acid. Raudel Thomas. Zofrxu. Thiamine. Additional plan as per the hospital course. Plan discussed with: Patient SYLVESTER THOMPSON MD Feb 14, 2024 14:25
[2024-02-14 16:51] VITALS: BP 117/80; PULSE 96; RESP 16; TEMP 97.3; O2SAT 95
[2024-02-14 20:00] VITALS: RESP 17
[2024-02-14 21:00] VITALS: BP 117/77; PULSE 77; RESP 18; TEMP 97.9; O2SAT 96
[2024-02-15] VITALS (7 sets, daily range): BP systolic 92–139; BP diastolic 59–86; PULSE 82–99; RESP 14–18; TEMP 97.8–98.2; O2SAT 96–100
--- NOTE | 2024-02-15 15:07 | DVHPN2 ---
Progress Note - Dictate Date Seen: Feb 15, 2024 Medical Necessity Reason Pt with a Central, PICC or Fol: No Subjective Patient was seen and evaluated in follow up. Patient is complaining of back and neck pain. Patient receiving Morphine for pain management. Final blood cultures are negative. vital signs Vital Sign Date Time Temp Pulse Resp B/P (MAP) Pulse Ox O2 Delivery O2 Flow Rate FiO2 02/15/24 12:52 97.8 85 16 139/86 (103) 96 97.8 02/15/24 08:00 Room Air* 0 21 Total Intake and Output 02/14/24 02/14/24 02/15/24 15:00 23:00 07:00 Intake Total 50 ml 400 ml Output Total 700 ml 800 ml Balance 50 ml -700 ml -400 ml medications Current Medications Medications Dose Ordered Sig/Vazquez Route Start Time Stop Time Status Last Admin Dose Admin Ceftriaxone Sodium 50 ml @ 100 mls/hr DAILY IV 02/09/24 10:00 02/15/24 09:05 100 MLS/HR Acetaminophen/ Hydrocodone Bitart 1 tab Q6HR PO 02/09/24 06:00 02/15/24 05:41 1 TAB Levetiracetam 250 mg BID PO 02/09/24 10:00 02/15/24 09:07 250 MG Gabapentin 300 mg TID PO 02/09/24 06:00 02/15/24 05:34 300 MG Enoxaparin Sodium 40 mg DAILY SC 02/09/24 10:00 02/15/24 09:06 40 MG Pantoprazole Sodium 40 mg DAILY PO 02/09/24 10:00 02/15/24 09:06 40 MG Lorazepam 1 mg Q2HPRN PRN IV 02/09/24 09:15 Thiamine HCl 100 mg DAILY PO 02/10/24 10:00 02/15/24 09:06 100 MG Folic Acid 1 mg DAILY PO 02/10/24 10:00 02/15/24 09:06 1 MG Multivitamins/ Minerals 1 tab DAILY PO 02/10/24 10:00 02/15/24 09:06 1 TAB Ondansetron HCl 4 mg Q6HPRN PRN IV 02/09/24 11:00 Magnesium Oxide 400 mg DAILY PO 02/11/24 10:00 02/15/24 09:06 400 MG Morphine Sulfate 2 mg Q3HPRN PRN IV 02/11/24 15:30 02/15/24 09:03 2 MG Cyclobenzaprine HCl 10 mg TID PO 02/11/24 22:00 02/15/24 05:34 10 MG objective GENERAL: Awake, alert, oriented. LUNGS: Clear. CARDIOVASCULAR: Heart sounds are good. ABDOMEN: Soft. laboratory and microbiology Laboratory Tests 02/10/24 05:43 Test 02/10/24 05:43 Range/Units Serum Glucose 95 74-106 mg/dL Problem List Lumbar radiculopathy. Acute cystitis. History of seizure disorder. Asymptomatic dermoid cyst. Alcohol and polysubstance abuse disorder. Irregularity and depression of the posterior margins of the S1 superior endplate with underlying marrow edema. DDD of lumbar spin mild. Assessment/Plan Continued all current supportive medical care. Morphine and [place] for pain management. IV antibiotics with Rocephin. DVT and GI prophylactics. Folic acid. Keppra Ativan. Zofran. Thiamine. Additional plan as per the hospital course. Plan discussed with: Patient SYLVESTER THOMPSON MD Feb 15, 2024 13:51
[2024-02-16] VITALS (7 sets, daily range): BP systolic 83–112; BP diastolic 52–82; PULSE 75–110; RESP 16–21; TEMP 97.4–98.5; O2SAT 95–100
--- NOTE | 2024-02-16 21:53 | DVHPN2 ---
Progress Note - Dictate Date Seen: Feb 16, 2024 Medical Necessity Reason Pt with a Central, PICC or Fol: No Subjective Patient was seen and evaluated in follow up. No over night events. Patient denies any new complaints. Patient pending clearance from Ortho for discharge. vital signs Vital Sign Date Time Temp Pulse Resp B/P (MAP) Pulse Ox O2 Delivery O2 Flow Rate FiO2 02/16/24 17:18 98.0 110 21 109/82 (91) 98 98.0 02/16/24 08:00 Room Air* 0 21 Total Intake and Output 02/15/24 02/15/24 02/16/24 15:00 23:00 07:00 Intake Total 50 ml 600 ml 250 ml Output Total 800 ml 550 ml Balance 50 ml -200 ml -300 ml medications Current Medications Medications Dose Ordered Sig/Vazquez Route Start Time Stop Time Status Last Admin Dose Admin Ceftriaxone Sodium 50 ml @ 100 mls/hr DAILY IV 02/09/24 10:00 02/16/24 10:07 100 MLS/HR Acetaminophen/ Hydrocodone Bitart 1 tab Q6HR PO 02/09/24 06:00 02/16/24 18:34 1 TAB Levetiracetam 250 mg BID PO 02/09/24 10:00 02/16/24 10:09 250 MG Gabapentin 300 mg TID PO 02/09/24 06:00 02/16/24 15:10 300 MG Enoxaparin Sodium 40 mg DAILY SC 02/09/24 10:00 02/16/24 10:09 40 MG Pantoprazole Sodium 40 mg DAILY PO 02/09/24 10:00 02/16/24 10:09 40 MG Lorazepam 1 mg Q2HPRN PRN IV 02/09/24 09:15 Thiamine HCl 100 mg DAILY PO 02/10/24 10:00 02/16/24 10:08 100 MG Folic Acid 1 mg DAILY PO 02/10/24 10:00 02/16/24 10:07 1 MG Multivitamins/ Minerals 1 tab DAILY PO 02/10/24 10:00 02/16/24 10:08 1 TAB Ondansetron HCl 4 mg Q6HPRN PRN IV 02/09/24 11:00 Magnesium Oxide 400 mg DAILY PO 02/11/24 10:00 02/16/24 10:08 400 MG Morphine Sulfate 2 mg Q3HPRN PRN IV 02/11/24 15:30 02/16/24 16:25 2 MG Cyclobenzaprine HCl 10 mg TID PO 02/11/24 22:00 02/16/24 15:10 10 MG objective GENERAL: Awake, alert, oriented. LUNGS: Clear. CARDIOVASCULAR: Heart sounds are good. ABDOMEN: Soft. laboratory and microbiology Laboratory Tests 02/10/24 05:43 Test 02/10/24 05:43 Range/Units Serum Glucose 95 74-106 mg/dL Problem List Lumbar radiculopathy. Acute cystitis. History of seizure disorder. Asymptomatic dermoid cyst. Alcohol and polysubstance abuse disorder. Irregularity and depression of the posterior margins of the S1 superior endplate with underlying marrow edema. DDD of lumbar spin mild. Assessment/Plan Continued all current supportive medical care. Morphine and [place] for pain management. IV antibiotics with Rocephin. DVT and GI prophylactics. Folic acid. Keppra Ativan. Zofran. Thiamine. Additional plan as per the hospital course. Plan discussed with: Patient SYLVESTER THOMPSON MD Feb 16, 2024 21:53
[2024-02-17] VITALS (7 sets, daily range): BP systolic 96–129; BP diastolic 62–82; PULSE 74–107; RESP 16–18; TEMP 97.5–98.5; O2SAT 94–99
--- NOTE | 2024-02-17 19:02 | DVHPN2 ---
Progress Note - Dictate Date Seen: Feb 17, 2024 Medical Necessity Reason Pt with a Central, PICC or Fol: No Subjective Patient was seen and evaluated in follow up. Patient is complaining of neck and back pain. Ortho recommended for transfer to [facility] for further evaluation of MRI findings Neurosurgery evaluation recommended. vital signs Vital Sign Date Time Temp Pulse Resp B/P (MAP) Pulse Ox O2 Delivery O2 Flow Rate FiO2 02/17/24 17:00 97.8 98 18 129/75 (93) 98 97.8 02/17/24 08:00 Room Air* 0 21 Total Intake and Output 02/16/24 02/16/24 02/17/24 15:00 23:00 07:00 Intake Total 50 ml 1000 ml 1760 ml Output Total 2550 ml Balance 50 ml 1000 ml -790 ml medications Current Medications Medications Dose Ordered Sig/Vazquez Route Start Time Stop Time Status Last Admin Dose Admin Ceftriaxone Sodium 50 ml @ 100 mls/hr DAILY IV 02/09/24 10:00 02/17/24 12:07 100 MLS/HR Acetaminophen/ Hydrocodone Bitart 1 tab Q6HR PO 02/09/24 06:00 02/17/24 12:10 1 TAB Levetiracetam 250 mg BID PO 02/09/24 10:00 02/17/24 10:21 250 MG Gabapentin 300 mg TID PO 02/09/24 06:00 02/17/24 13:56 300 MG Enoxaparin Sodium 40 mg DAILY SC 02/09/24 10:00 02/17/24 10:20 40 MG Pantoprazole Sodium 40 mg DAILY PO 02/09/24 10:00 02/17/24 10:20 40 MG Lorazepam 1 mg Q2HPRN PRN IV 02/09/24 09:15 Thiamine HCl 100 mg DAILY PO 02/10/24 10:00 02/17/24 10:20 100 MG Folic Acid 1 mg DAILY PO 02/10/24 10:00 02/17/24 10:20 1 MG Multivitamins/ Minerals 1 tab DAILY PO 02/10/24 10:00 02/17/24 10:21 1 TAB Ondansetron HCl 4 mg Q6HPRN PRN IV 02/09/24 11:00 Magnesium Oxide 400 mg DAILY PO 02/11/24 10:00 02/17/24 10:21 400 MG Morphine Sulfate 2 mg Q3HPRN PRN IV 02/11/24 15:30 02/17/24 16:47 2 MG Cyclobenzaprine HCl 10 mg TID PO 02/11/24 22:00 02/17/24 13:56 10 MG objective GENERAL: Awake, alert, oriented. LUNGS: Clear. CARDIOVASCULAR: Heart sounds are good. ABDOMEN: Soft. laboratory and microbiology Laboratory Tests 02/10/24 05:43 Test 02/10/24 05:43 Range/Units Serum Glucose 95 74-106 mg/dL Problem List Lumbar radiculopathy. Acute cystitis. History of seizure disorder. Asymptomatic dermoid cyst. Alcohol and polysubstance abuse disorder. Irregularity and depression of the posterior margins of the S1 superior endplate with underlying marrow edema. DDD of lumbar spin mild. Assessment/Plan Continued all current supportive medical care. Morphine and [place] for pain management. IV antibiotics with Rocephin. DVT and GI prophylactics. Folic acid. Raudel Thomas. Zofran. Thiamine. Additional plan as per the hospital course. Plan discussed with: Patient SYLVESTER THOMPSON MD Feb 17, 2024 19:02
[2024-02-18] VITALS (7 sets, daily range): BP systolic 96–130; BP diastolic 57–82; PULSE 74–107; RESP 16–20; TEMP 97.4–98.2; O2SAT 96–100
[2024-02-18] MEDS: FAMOTIDINE (10MG/ML) 2ML VL IV ONE (07:32)
--- NOTE | 2024-02-18 16:48 | MEDREC ---
[facility] ASP Intervention Section I [facility] ASP Intervention: Review courses of therapy (10 DAYS ON ROCEPHIN FOR UTI - COURSE OF THERPAY COMPLETE - PLEASE CONSIDER D/C ANTIBIOTIC ) BRIDGET BERNARDO PHARMACIST Feb 18, 2024 16:48
--- NOTE | 2024-02-18 22:00 | DVHPN2 ---
Progress Note - Dictate Date Seen: Feb 18, 2024 Medical Necessity Reason Pt with a Central, PICC or Fol: No Subjective Patient was seen and evaluated in follow up. Patient is complaining of neck and back pain. CM is working on patient's HLOC transfer. vital signs Vital Sign Date Time Temp Pulse Resp B/P (MAP) Pulse Ox O2 Delivery O2 Flow Rate FiO2 02/18/24 08:37 98.2 76 18 108/57 (74) 100 98.2 02/18/24 08:00 Room Air* 0 21 Total Intake and Output 02/17/24 02/17/24 02/18/24 15:00 23:00 07:00 Intake Total 530 ml 1280 ml 550 ml Output Total 675 ml 2000 ml Balance 530 ml 605 ml -1450 ml medications Current Medications Medications Dose Ordered Sig/Vazquez Route Start Time Stop Time Status Last Admin Dose Admin Ceftriaxone Sodium 50 ml @ 100 mls/hr DAILY IV 02/09/24 10:00 02/18/24 08:13 100 MLS/HR Levetiracetam 250 mg BID PO 02/09/24 10:00 02/18/24 08:10 250 MG Gabapentin 300 mg TID PO 02/09/24 06:00 02/18/24 05:27 300 MG Enoxaparin Sodium 40 mg DAILY SC 02/09/24 10:00 02/18/24 08:11 40 MG Pantoprazole Sodium 40 mg DAILY PO 02/09/24 10:00 02/18/24 08:10 40 MG Lorazepam 1 mg Q2HPRN PRN IV 02/09/24 09:15 Thiamine HCl 100 mg DAILY PO 02/10/24 10:00 02/18/24 08:11 100 MG Folic Acid 1 mg DAILY PO 02/10/24 10:00 02/18/24 08:11 1 MG Multivitamins/ Minerals 1 tab DAILY PO 02/10/24 10:00 02/18/24 08:11 1 TAB Ondansetron HCl 4 mg Q6HPRN PRN IV 02/09/24 11:00 Magnesium Oxide 400 mg DAILY PO 02/11/24 10:00 02/18/24 08:10 400 MG Morphine Sulfate 2 mg Q3HPRN PRN IV 02/11/24 15:30 02/18/24 08:35 2 MG Cyclobenzaprine HCl 10 mg TID PO 02/11/24 22:00 02/18/24 05:27 10 MG objective GENERAL: Awake, alert, oriented. LUNGS: Clear. CARDIOVASCULAR: Heart sounds are good. ABDOMEN: Soft. laboratory and microbiology Laboratory Tests 02/10/24 05:43 Test 02/10/24 05:43 Range/Units Serum Glucose 95 74-106 mg/dL Problem List Lumbar radiculopathy. Acute cystitis. History of seizure disorder. Asymptomatic dermoid cyst. Alcohol and polysubstance abuse disorder. Irregularity and depression of the posterior margins of the S1 superior endplate with underlying marrow edema. DDD of lumbar spin mild. Assessment/Plan Continued all current supportive medical care. Morphine and [place] for pain management. IV antibiotics with Rocephin. DVT and GI prophylactics. Folic acid. Raudel Thomas. Zofran. Thiamine. Additional plan as per the hospital course. Plan discussed with: Patient SYLVESTER THOMPSON MD Feb 18, 2024 12:28
[2024-02-19] VITALS (8 sets, daily range): BP systolic 100–143; BP diastolic 48–78; PULSE 60–112; RESP 16–18; TEMP 98.1–98.5; O2SAT 96–100
--- NOTE | 2024-02-19 20:16 | DVHPN2 ---
Progress Note - Dictate Date Seen: Feb 19, 2024 Medical Necessity Reason Pt with a Central, PICC or Fol: No Subjective Patient was seen and evaluated in follow up. Patient is complaining of neck and back pain. CM is working on transfer to [facility]. At this time, there are no accepting facilities for transfer. vital signs Vital Sign Date Time Temp Pulse Resp B/P (MAP) Pulse Ox O2 Delivery O2 Flow Rate FiO2 02/19/24 08:28 98.2 93 16 135/76 (95) 98 98.2 02/19/24 08:00 Room Air* 0 21 Total Intake and Output 02/18/24 02/18/24 02/19/24 15:00 23:00 07:00 Intake Total 50 ml 1200 ml 900 ml Output Total 1000 ml Balance 50 ml 1200 ml -100 ml medications Current Medications Medications Dose Ordered Sig/Vazquez Route Start Time Stop Time Status Last Admin Dose Admin Ceftriaxone Sodium 50 ml @ 100 mls/hr DAILY IV 02/09/24 10:00 02/19/24 08:13 100 MLS/HR Levetiracetam 250 mg BID PO 02/09/24 10:00 02/19/24 08:15 250 MG Gabapentin 300 mg TID PO 02/09/24 06:00 02/19/24 05:22 300 MG Enoxaparin Sodium 40 mg DAILY SC 02/09/24 10:00 02/19/24 08:14 40 MG Pantoprazole Sodium 40 mg DAILY PO 02/09/24 10:00 02/19/24 08:14 40 MG Lorazepam 1 mg Q2HPRN PRN IV 02/09/24 09:15 Thiamine HCl 100 mg DAILY PO 02/10/24 10:00 02/19/24 08:14 100 MG Folic Acid 1 mg DAILY PO 02/10/24 10:00 02/19/24 08:14 1 MG Multivitamins/ Minerals 1 tab DAILY PO 02/10/24 10:00 02/19/24 08:14 1 TAB Ondansetron HCl 4 mg Q6HPRN PRN IV 02/09/24 11:00 Magnesium Oxide 400 mg DAILY PO 02/11/24 10:00 02/19/24 08:15 400 MG Morphine Sulfate 2 mg Q3HPRN PRN IV 02/11/24 15:30 02/19/24 08:24 2 MG Cyclobenzaprine HCl 10 mg TID PO 02/11/24 22:00 02/19/24 05:22 10 MG objective GENERAL: Awake, alert, oriented. LUNGS: Clear. CARDIOVASCULAR: Heart sounds are good. ABDOMEN: Soft. laboratory and microbiology Laboratory Tests 02/10/24 05:43 Test 02/10/24 05:43 Range/Units Serum Glucose 95 74-106 mg/dL Problem List Lumbar radiculopathy. Acute cystitis. History of seizure disorder. Asymptomatic dermoid cyst. Alcohol and polysubstance abuse disorder. Irregularity and depression of the posterior margins of the S1 superior endplate with underlying marrow edema. DDD of lumbar spin mild. Assessment/Plan Continued all current supportive medical care. Morphine and [place] for pain management. IV antibiotics with Rocephin. DVT and GI prophylactics. Folic acid. Raudel Thomas. Zofran. Thiamine. Additional plan as per the hospital course. Plan discussed with: Patient SYLVESTER THOMPSON MD Feb 19, 2024 12:06
[2024-02-20 05:00] VITALS: BP 123/68; PULSE 108; RESP 18; TEMP 98.2; O2SAT 99
[2024-02-20 08:00] VITALS: PULSE 95; RESP 18; O2SAT 97
[2024-02-20 09:25] VITALS: BP 125/84; PULSE 95; RESP 18; TEMP 97.9; O2SAT 96
[2024-02-20 12:43] VITALS: BP 109/72; PULSE 91; RESP 19; TEMP 97.6; O2SAT 93
[2024-02-20 17:03] VITALS: BP 115/59; PULSE 81; RESP 17; TEMP 97.7; O2SAT 94
[2024-02-20 21:00] VITALS: BP 103/67; PULSE 96; RESP 19; TEMP 98.4; O2SAT 95
[2024-02-20] MEDS: MORPHINE SULFATE 4 MG/ML SYR/VIAL IV PRN (21:46)
[2024-02-20] MEDS: traZODone HCL 50 MG TAB PO SCH (23:36)
[2024-02-20] MEDS: CARISOPRODOL 350 MG TAB PO SCH (23:36)
--- NOTE | 2024-02-20 23:36 | DVHPN2 ---
Progress Note - Dictate Date Seen: Feb 20, 2024 Medical Necessity Reason Pt with a Central, PICC or Fol: No Subjective Patient was seen and evaluated in follow up. Patient is complaining of shooting leg pains down both legs, received Morphine. Denies any incontinence. I requesting for all images to review patients case. vital signs Vital Sign Date Time Temp Pulse Resp B/P (MAP) Pulse Ox O2 Delivery O2 Flow Rate FiO2 02/20/24 12:43 97.6 91 19 109/72 (84) 93 97.6 02/19/24 20:00 Room Air* 0 21 Total Intake and Output 02/19/24 02/19/24 02/20/24 15:00 23:00 07:00 Intake Total 850 ml 1200 ml Output Total 750 ml 1600 ml Balance 100 ml -400 ml medications Current Medications Medications Dose Ordered Sig/Vazquez Route Start Time Stop Time Status Last Admin Dose Admin Levetiracetam 250 mg BID PO 02/09/24 10:00 02/20/24 09:33 250 MG Gabapentin 300 mg TID PO 02/09/24 06:00 02/20/24 06:05 300 MG Pantoprazole Sodium 40 mg DAILY PO 02/09/24 10:00 02/20/24 09:33 40 MG Lorazepam 1 mg Q2HPRN PRN IV 02/09/24 09:15 Thiamine HCl 100 mg DAILY PO 02/10/24 10:00 02/20/24 09:33 100 MG Folic Acid 1 mg DAILY PO 02/10/24 10:00 02/20/24 09:32 1 MG Multivitamins/ Minerals 1 tab DAILY PO 02/10/24 10:00 02/20/24 09:32 1 TAB Ondansetron HCl 4 mg Q6HPRN PRN IV 02/09/24 11:00 Magnesium Oxide 400 mg DAILY PO 02/11/24 10:00 02/20/24 09:32 400 MG Morphine Sulfate 2 mg Q3HPRN PRN IV 02/11/24 15:30 02/20/24 11:54 2 MG Cyclobenzaprine HCl 10 mg TID PO 02/11/24 22:00 02/20/24 06:05 10 MG objective GENERAL: Awake, alert, oriented. LUNGS: Clear. CARDIOVASCULAR: Heart sounds are good. ABDOMEN: Soft. laboratory and microbiology Laboratory Tests 02/10/24 05:43 Test 02/10/24 05:43 Range/Units Serum Glucose 95 74-106 mg/dL Problem List Lumbar radiculopathy. Acute cystitis. History of seizure disorder. Asymptomatic dermoid cyst. Alcohol and polysubstance abuse disorder. Irregularity and depression of the posterior margins of the S1 superior endplate with underlying marrow edema. DDD of lumbar spin mild. Assessment/Plan Continued all current supportive medical care. Morphine and [place] for pain management. IV antibiotics with Rocephin. DVT and GI prophylactics. Folic acid. Raudel Thomas. Zofran. Thiamine. Additional plan as per the hospital course. Plan discussed with: Patient SYLVESTER THMOPSON MD Feb 20, 2024 13:40
[2024-02-21] VITALS (8 sets, daily range): BP systolic 100–142; BP diastolic 65–95; PULSE 91–102; RESP 18–95; TEMP 97.9–98.3; O2SAT 92–98
[2024-02-21 05:50] LABS: Basophils # (auto) 0.1 10 ^3/uL (0-0.2); Basophils % (auto) 1.5 % (0.0-2.0); Eosinophils # (auto) 0.1 10 ^3/uL (0-0.8); Hematocrit 40.8 % (36.0-46.0); Hemoglobin 13.5 g/dL (12.2-16.2); Lymphocytes # (auto) 1.4 10 ^3/uL (0.4-5.4); Lymphocytes % (auto) 20.8 % (10.0-50.0); Mean Corpuscular Hemoglobin 29.1 pg (28.0-32.0); Mean Corpuscular Hgb Conc. 33.1 g/dL (32.0-36.0); Mean Corpuscular Volume 88.1 fL (80.0-100.0); Monocytes # (auto) 0.8 10 ^3/uL (0-1.3); Monocytes % (auto) 12.1 % (0.0-12.0); Neutrophils # (auto) 4.2 10 ^3/uL (1.6-8.6); Neutrophils % (auto) 63.6 % (37.0-80.0); Nucleated Red Blood Cells % 0.1 %; Platelet Count (auto) 208 10^3/uL (140-450); Red Blood Cells 4.63 10^6/uL (4.0-5.20); Red Cell Distribution Width 15.9 % (11.8-14.3); White Blood Cell 6.6 10^3/uL (4.4-10.8)
[2024-02-21 06:13] LABS: Albumin 3.9 g/dL (3.2-4.8); Alkaline Phosphatase 88 U/L (46-116); Anion Gap 8 (5-15); BUN/Creatinine Ratio 12.5 (10.0-20.0); Blood Urea Nitrogen 10 mg/dL (9-23); Calcium 10.1 mg/dL (8.7-10.4); Carbon Dioxide 24 mmol/L (20-31); Chloride 106 mmol/L (98-107); Glucose 105 mg/dL (74-106); Sodium 138 mmol/L (136-145); Total Protein 7.3 g/dL (5.7-8.2)
[2024-02-21 06:15] LABS: Alanine Aminotransferase 51 U/L (7-40); Aspartate Aminotransferase 40 U/L (13-40); Bilirubin, Total 0.2 mg/dL (0.2-1.0)
[2024-02-21] MEDS: DULoxetine HCL 30 MG CAP PO SCH (11:13)
--- NOTE | 2024-02-21 14:27 | DVHPN2 ---
Progress Note - Dictate Date Seen: Feb 21, 2024 Medical Necessity Reason Pt with a Central, PICC or Fol: No Subjective Patient was seen and evaluated in follow up. Patient is complains of back pain radiating down BLEs. Per CM, all [facility] have declined patient for transfer and have recommended for outpatient evaluation. vital signs Vital Sign Date Time Temp Pulse Resp B/P (MAP) Pulse Ox O2 Delivery O2 Flow Rate FiO2 02/21/24 13:20 98.2 93 18 142/95 (111) 96 98.2 02/21/24 08:00 Room Air* 0 21 Total Intake and Output 02/20/24 02/20/24 02/21/24 15:00 23:00 07:00 Intake Total 50 ml 860 ml 800 ml Output Total 1500 ml 1200 ml Balance 50 ml -640 ml -400 ml medications Current Medications Medications Dose Ordered Sig/Vazquez Route Start Time Stop Time Status Last Admin Dose Admin Levetiracetam 250 mg BID PO 02/09/24 10:00 02/21/24 11:13 250 MG Gabapentin 300 mg TID PO 02/09/24 06:00 02/21/24 05:57 300 MG Pantoprazole Sodium 40 mg DAILY PO 02/09/24 10:00 02/21/24 11:12 40 MG Lorazepam 1 mg Q2HPRN PRN IV 02/09/24 09:15 Thiamine HCl 100 mg DAILY PO 02/10/24 10:00 02/21/24 11:12 100 MG Folic Acid 1 mg DAILY PO 02/10/24 10:00 02/21/24 11:13 1 MG Multivitamins/ Minerals 1 tab DAILY PO 02/10/24 10:00 02/21/24 11:12 1 TAB Ondansetron HCl 4 mg Q6HPRN PRN IV 02/09/24 11:00 Magnesium Oxide 400 mg DAILY PO 02/11/24 10:00 02/21/24 11:12 400 MG Morphine Sulfate 3 mg Q3HPRN PRN IV 02/20/24 19:00 02/21/24 11:22 3 MG Carisoprodol 350 mg TID PO 02/20/24 22:00 02/21/24 05:57 350 MG Duloxetine HCl 30 mg DAILY PO 02/21/24 10:00 02/21/24 11:13 30 MG Trazodone HCl 50 mg HS PO 02/20/24 22:00 02/20/24 23:36 50 MG objective GENERAL: Awake, alert, oriented. LUNGS: Clear. CARDIOVASCULAR: Heart sounds are good. ABDOMEN: Soft. laboratory and microbiology Laboratory Tests 02/21/24 05:10 Test 02/21/24 05:10 Range/Units Serum Glucose 105 74-106 mg/dL Problem List Lumbar radiculopathy. Acute cystitis. History of seizure disorder. Asymptomatic dermoid cyst. Alcohol and polysubstance abuse disorder. Irregularity and depression of the posterior margins of the S1 superior endplate with underlying marrow edema. DDD of lumbar spin mild. Assessment/Plan Continued all current supportive medical care. Morphine and [place] for pain management. IV antibiotics with Rocephin. DVT and GI prophylactics. Folic acid. Raudel Thomas. Zofran. Thiamine. Additional plan as per the hospital course. Plan discussed with: Patient SYLVESTER THOMPSON MD Feb 21, 2024 13:54
[2024-02-22 05:00] VITALS: BP 101/65; PULSE 101; RESP 18; TEMP 97.7; O2SAT 98
[2024-02-22 08:00] VITALS: PULSE 104; RESP 16; O2SAT 96
[2024-02-22 09:00] VITALS: BP 105/72; PULSE 91; RESP 16; TEMP 97.8; O2SAT 96
[2024-02-22 13:00] VITALS: BP 110/64; PULSE 102; RESP 16; TEMP 98.2; O2SAT 96
[2024-02-22 16:49] VITALS: BP 110/53; PULSE 104; RESP 16; TEMP 98.2; O2SAT 96
[2024-02-22 17:00] VITALS: BP 93/62; PULSE 92; RESP 18; TEMP 98; O2SAT 97
--- NOTE | 2024-02-23 02:35 | DVHDS2 ---
Discharge Summary Date of Admission Feb 09, 2024 at 01:54 Date of Discharge: Feb 16, 2024 Admitting Diagnosis Lumbar radiculopathy. Acute cystitis. History of seizure disorder. Asymptomatic dermoid cyst. Alcohol and polysubstance abuse disorder. Labs/Diagnostic Data: Laboratory Results Test 02/21/24 05:10 02/12/24 19:37 02/10/24 05:43 02/09/24 11:52 White Blood Count 6.6 10^3/uL (4.4-10.8) Red Blood Count 4.63 10^6/uL (4.0-5.20) Hemoglobin 13.5 g/dL (12.2-16.2) Hematocrit 40.8 % (36.0-46.0) Mean Corpuscular Volume 88.1 fL (80.0-100.0) Mean Corpuscular Hemoglobin 29.1 pg (28.0-32.0) Mean Corpuscular Hemoglobin Concent 33.1 g/dL (32.0-36.0) Red Cell Distribution Width 15.9 % (11.8-14.3) Platelet Count 208 10^3/uL (140-450) Mean Platelet Volume 9.8 fL (6.9-10.8) Neutrophils (%) (Auto) 63.6 % (37.0-80.0) Lymphocytes (%) (Auto) 20.8 % (10.0-50.0) Monocytes (%) (Auto) 12.1 % (0.0-12.0) Eosinophils (%) (Auto) 2.0 % (0.0-7.0) Basophils (%) (Auto) 1.5 % (0.0-2.0) Neutrophils # (Auto) 4.2 10 ^3/uL (1.6-8.6) Lymphocytes # (Auto) 1.4 10 ^3/uL (0.4-5.4) Monocytes # (Auto) 0.8 10 ^3/uL (0-1.3) Eosinophils # (Auto) 0.1 10 ^3/uL (0-0.8) Basophils # (Auto) 0.1 10 ^3/uL (0-0.2) Nucleated Red Blood Cells 0.1 % Sodium Level 138 mmol/L (136-145) Potassium Level 4.0 mmol/L (3.5-5.1) Chloride Level 106 mmol/L (98-107) Carbon Dioxide Level 24 mmol/L (20-31) Anion Gap 8 (5-15) Blood Urea Nitrogen 10 mg/dL (9-23) Creatinine 0.80 mg/dL (0.550-1.02) Glomerular Filtration Rate Calc 94 mL/min (>90) BUN/Creatinine Ratio 12.5 (10.0-20.0) Serum Glucose 105 mg/dL (74-106) Calcium Level 10.1 mg/dL (8.7-10.4) Total Bilirubin 0.2 mg/dL (0.2-1.0) Aspartate Amino Transferase (AST) 40 U/L (13-40) Alanine Aminotransferase (ALT) 51 U/L (7-40) Alkaline Phosphatase 88 U/L (46-116) Total Protein 7.3 g/dL (5.7-8.2) Albumin 3.9 g/dL (3.2-4.8) Stool for White Cells None seen Prothrombin Time 10.5 sec (9.3-11.8) Prothrombin Time INR 0.99 (0.9-1.15) Phosphorus Level 3.6 mg/dL (2.4-5.1) Magnesium Level 1.8 mg/dL (1.6-2.6) Test 02/09/24 00:43 02/08/24 20:47 Urine Color Light-yellow (Yellow) Urine Clarity Turbid (Clear) Urine pH 6.5 (5.0-9.0) Urine Specific [place] 1.026 (1.001-1.035) Urine Protein Negative (Negative) Urine Ketones 1+ (Negative) Urine Blood Negative /uL (Negative) Urine Nitrite 2+ (Negative) Urine Bilirubin Negative (Negative) Urine Urobilinogen Normal mg/dL (Negative) Urine Leukocyte Esterase Negative /uL (Negative) Urine RBC 1 /hpf (0 - 4) Urine WBC 1 /hpf (0 - 5) Urine Squamous Epithelial Cells Few /hpf (<5) Urine Bacteria Few /hpf (None Seen) Urine Mucus Few (None Seen) Urine Glucose Normal mg/dL (Normal) Urine Opiates Screen Pos (NEGATIVE) Urine Fentanyl Screen Neg (NEGATIVE) Urine Barbiturates Screen Neg (NEGATIVE) Urine Phencyclidine Screen Neg (NEGATIVE) Urine Amphetamines Screen Pos (NEGATIVE) Urine Benzodiazepines Screen Neg (NEGATIVE) Urine Cocaine Screen Neg (NEGATIVE) Urine Cannabinoids Screen Pos (NEGATIVE) Hemoglobin A1c 5.5 % A1C (<5.7) Thyroid Stimulating Hormone (TSH) 1.78 uIU/mL (0.55-4.78) Plasma/Serum Blood Alcohol 77.8 mg/dL (<10) Other Laboratory Tests 02/21/24 05:10 Brief Hx & Hospital Course: Brief history: Please refer to H&P. Hospital Course: Patient was admitted for further treatment and evaluation. Patient was started on [place] for pain management. Patient had further work up and observation for appropriate treatment. MRI L-spine showed mild irregularity and depression of the posterior margins of the S1 superior endplate with underlying marrow edema and multilevel degenerative changes in the lower lumbar spine. Urine culture grew >100,000 CFU/mL Mixed [place]. WBC stool returned negative for WBCs. MRI C- Spine shows postsurgical changes related to ACDF at the C5-C6 level. The cervical cord demonstrates decreased caliber at the surgical level with a small syrinx measuring 2 mm in diameter. Final blood cultures are negative. Ortho evaluated the patient and recommended for transfer to [facility] for further evaluation of MRI findings for neurosurgery evaluation. Urologist seen patient and advised for outpt cystoscopy and urodynamics. Per CM, all [facility] facilities declined patient for transfer and have recommended for outpatient evaluation.Patient's symptoms improved and the patient was stabilized. Patient was cleared for discharge and was stable at the time of discharge. Discharge instructions and prescriptions were given. Patient's vitals were stable at time of discharge. Condition at Discharge: Stable Final Diagnosis/Problems List Lumbar radiculopathy. Acute cystitis. History of seizure disorder. Asymptomatic dermoid cyst. Alcohol and polysubstance abuse disorder. Irregularity and depression of the posterior margins of the S1 superior endplate with underlying marrow edema. DDD of lumbar spin mild. Discharge Disposition: Home with Health Services Discharge Instruct/Medications Diet: Regular Diet comment: REGULAR Activity: Bed rest Follow Up/Referral: FOLLOW UP WITH PMD TOMORROW Medications: MS KARLA CARDONA Discharge Statement: "Patient was advised to return to the ER or call 911 if any headaches, dizziness, shortness of breath, chest pain, abdominal pain, bleeding, fevers, or worsening of medical condition. Patient was counseled about treatment plan, medications, possible side effects, patientverbalized understanding. All questions were answered to the best of my ability. This discharge took greater then 30 minutes in planning, reviewing documentation, counseling the patient, and discussing with other team members." ASSESSMENT ASSESSMENT Assessment CERVICAL CORD COMPRESSION SEVERE PERIPHERAL NEUROPATHY SYLVESTER THOMPSON MD Feb 22, 2024 16:17
== END 2024-02-22 18:45 | disposition home or self-care (01) | DRG 552 ==
LOC: ER 20:23 → EDBD 20:23 → OVERFLOW 02-09 01:54 → WEST WING 02-09 19:00
PROVIDERS: ADMIT Internal Medicine; ATTEND Specialist
DX: M51.16 Intervertebral disc disorders with radiculopathy, lumbar region (principal); N30.00 Acute cystitis without hematuria; M47.26 Other spondylosis with radiculopathy, lumbar region; F10.120 Alcohol abuse with intoxication, uncomplicated; F19.10 Other psychoactive substance abuse, uncomplicated; G40.909 Epilepsy, unspecified, not intractable, without status epilepticus; I10 Essential (primary) hypertension; G89.29 Other chronic pain; D36.7 Benign neoplasm of other specified sites; F17.200 Nicotine dependence, unspecified, uncomplicated; N39.42 Incontinence without sensory awareness; E11.42 Type 2 diabetes mellitus with diabetic polyneuropathy; Y90.3 Blood alcohol level of 60-79 mg/100 ml; Z82.49 Family history of ischemic heart disease and other diseases of the circulatory system; Z83.3 Family history of diabetes mellitus; Z79.4 Long term (current) use of insulin; Z79.899 Other long term (current) drug therapy
CPT/HCPCS: 36415; 71045; 72131; 72141; 72148; 80048; 80053; 80307; 80320; 81001; 83036; 83735; 84100; 84443; 84450; 84460; 85025; 85048; 85610; 87040; 87086; 97110; 97116; 97163; 97530; G0378; J2405; J3490

== ENCOUNTER 2024-04-05 09:39 | Emergency (ER) | payer OTHER, MEDICAID ==
[~2024-04-05] VITALS: Ht 182.9 cm; Wt 87.3 kg
--- NOTE | 2024-04-05 10:50 | ED.PDOC ---
Back pain HPI HPI Comments Pleasant 43-year-old female with hx of chx back issues and urinary retention is sent by her PCP Dr. Infante to have Sutton catheter changed for urinary retention. Catheter was changed three weeks ago. Chief Complaint: Tube Replacement Time Seen by MD: 10:18 Primary Care Provider: akira Reviewed Notes: Nurses Notes, Medications, Allergies Allergies: Coded Allergies: NO KNOWN ALLERGIES (Unverified , 08/19/22) Home Meds Active Scripts Ciprofloxacin Hcl (Cipro) 500 Mg Tab, 1 TAB PO BID for 5 Days, #10 TAB 0 Refills Prov:REINALDO BERNAL Rubina [employer] 04/05/24 Reported Medications Albuterol Sulfate (Albuterol Sulfate Hfa) 108 Mcg/Act Aer, 108 MCG IN, AER 08/18/22 Oxycodone W/ Acetaminophen (Oxycodone/Acetaminophen 10-300 mg) 1 Tab Tab 08/18/22 Buprenorphine (BUTRANS) 10 Mcg/Hr Dis, 15 MCG TD QWEEKLY, DIS 08/18/22 Levetiracetam (Keppra) 250 Mg Tab, 250 MG PO BID for 30 Days, MG 08/18/22 Gabapentin (Gabapentin) 300 Mg Cap, 300 MG PO TID for 30 Days, MG 08/18/22 Information Source: Patient Mode of Arrival: Wheelchair Past Medical History Surgical History: Denies all surgeries WELFARE INTERVIEWER History: Denies all WELFARE INTERVIEWER Hx Family History Family History: Reviewed,noncontributory to illness Social History Smoker: Non-Smoker Alcohol: Denies ETOH Use Drugs: Denies Drug Use Lives In: Home All Other Systems: Reviewed and Negative (Per HPI) Physical Exam General Appearance: No Apparent Distress, Normal HEENT: Normal ENT Inspection, Pharynx Normal, TMs Normal Neck: Full Range of Motion, Non-Tender, Normal, Normal Inspection Respiratory: Chest Non-Tender, Lungs Clear, No Accessory Muscle Use, No Respiratory Distress, Normal Breath Sounds Cardiovascular: No Edema, No JVD, No Murmur, No Gallop, Normal Peripheral Pulses, Regular Rate/Rhythm Breast Exam: Deferred Gastrointestinal: No Organomegaly, Non Tender, No Pulsatile Mass, Normal Bowel Sounds, Soft Genitalia: Normal Pelvic: Deferred Rectal: Deferred Extremities: No calf tenderness, Normal capillary refill, Normal inspection, Normal range of motion, Non-tender, No pedal edema Musculoskeletal : Apperance: Normal Neurologic: Alert, No Motor Deficits, Normal Affect, Normal Mood, No Sensory Deficits Cerebellar Function: Normal Reflexes: Normal Skin: Dry, Normal Color, Warm Lymphatic: No Adenopathy Was a procedure done? Was a procedure done?: No Back Pain Differential Dx Differential Diagnosis: Other X-Ray, Labs, Meds, VS Vital Signs Date Time Temp Pulse Resp B/P (MAP) Pulse Ox O2 Delivery O2 Flow Rate FiO2 04/05/24 11:38 84 18 98 Room Air 04/05/24 11:38 98.3 84 18 136/62 (86) 98 98.3 04/05/24 09:58 98.9 80 17 138/58 (84) 99 Lab Test 04/05/24 11:20 04/05/24 11:13 Range/Units White Blood Count 10.6 4.4-10.8 10^3/uL Red Blood Count 5.01 4.0-5.20 10^6/uL Hemoglobin 14.4 12.2-16.2 g/dL Hematocrit 43.7 36.0-46.0 % Mean Corpuscular Volume 87.3 80.0-100.0 fL Mean Corpuscular Hemoglobin 28.8 28.0-32.0 pg Mean Corpuscular Hemoglobin Concent 33.0 32.0-36.0 g/dL Red Cell Distribution Width 15.7 H 11.8-14.3 % Platelet Count 289 140-450 10^3/uL Mean Platelet Volume 8.6 6.9-10.8 fL Neutrophils (%) (Auto) 74.3 37.0-80.0 % Lymphocytes (%) (Auto) 16.3 10.0-50.0 % Monocytes (%) (Auto) 8.1 0.0-12.0 % Eosinophils (%) (Auto) 0.7 0.0-7.0 % Basophils (%) (Auto) 0.6 0.0-2.0 % Neutrophils # (Auto) 7.8 1.6-8.6 10 ^3/uL Lymphocytes # (Auto) 1.7 0.4-5.4 10 ^3/uL Monocytes # (Auto) 0.9 0-1.3 10 ^3/uL Eosinophils # (Auto) 0.1 0-0.8 10 ^3/uL Basophils # (Auto) 0.1 0-0.2 10 ^3/uL Nucleated Red Blood Cells 0.4 % Sodium Level 136 136-145 mmol/L Potassium Level 4.0 3.5-5.1 mmol/L Chloride Level 106 98-107 mmol/L Carbon Dioxide Level 22 20-31 mmol/L Anion Gap 8 5-15 Blood Urea Nitrogen 7 L 9-23 mg/dL Creatinine 0.70 0.550-1.02 mg/dL Glomerular Filtration Rate Calc 111 >90 mL/min BUN/Creatinine Ratio 10.0 10.0-20.0 Serum Glucose 89 74-106 mg/dL Calcium Level 10.3 8.7-10.4 mg/dL Urine Color Colorless Yellow Urine Clarity Clear Clear Urine pH 6.5 5.0-9.0 Urine Specific [place] 1.007 1.001-1.035 Urine Protein Negative Negative Urine Ketones Negative Negative Urine Blood Negative Negative /uL Urine Nitrite Negative Negative Urine Bilirubin Negative Negative Urine Urobilinogen Normal Negative mg/dL Urine Leukocyte Esterase 2+ Negative /uL Urine RBC 1 0 - 4 /hpf Urine Microscopic WBC 15 H 0-5 /HPF Urine Squamous Epithelial Cells Few <5 /hpf Urine Bacteria None seen None Seen /hpf Urine Glucose Normal Normal mg/dL Current Medications Medications (Trade) Dose Ordered Sig/Vazquez Route Start Time Stop Time Status Last Admin Ceftriaxone Sodium (Rocephin) 1,000 mg ONCE ONCE IM 04/05/24 12:45 04/05/24 12:48 DC 04/05/24 13:04 X-Ray, Labs, Meds, VS Comment History and lab findings consistent with UTI. Non toxic. Labs ordered and reviewed Patient tolerating p.o. fluids Encouraged parents to increase water intake Practice good personal hygiene. Always wipe from front to back Drink plenty of fluids to help flush bacteria out of the urinary tract [place] catheter changed. Good outflow on revaluation. Prescribed p.o. antibiotics for presentation of symptoms Complete course of antibiotic therapy even if symptoms improve or resolve. Ther e should be no leftover antibiotics as this can lead to antibiotic resistant bacteria and even worse infection. Parents verbalized understanding. Potential side effects discussed with patient including abdominal pain, nausea, diarrhea. Recommended probiotics and return precautions given Persistent diarrhea Dehydration Blood in stool Ill-appearing On reevaluation, patient had symptomatic improvement. Patient is stable for discharge at this time. External notes reviewed. Test results and diagnostic imaging interpreted. All diagnostic findings, discharge care, education and instructions provided Follow-up with PCP in 2 to 3 days Patient verbalized understanding and agreed to treatment plan Vital signs stable, afebrile, no acute distress noted Patient ambulatory with strong steady gait Advised to return precautions for any new or worsening symptoms, return to ER immediately for re-evaluation Patient is aware that the purpose of this visit was for an acute medical emergency requiring emergent stabilization. Chronic conditions, including malignancies have not been ruled out. Patient is instructed to follow up with PCP as directed and discharge instructions for continued care and workup. If unable to arrange follow-up, patient is to return to the emergency department for reassessment. Patient (parent or legal guardian if applicable) was given verbal and written discharge instructions and acknowledges understanding. Time of 1ST Reevaluation: 13:00 Reevaluation 1ST: Improved Patient Education/Counseling: Diagnosis, Treatment Family Education/Counseling: Diagnosis, Treatment Departure 1 Departure Time of Disposition: 13:23 Impression: Primary Impression: UTI (urinary tract infection) Qualified Codes: T83.511A - Infection and inflammatory reaction due to indwelling urethral catheter, initial encounter; N39.0 - Urinary tract infection, site not specified Disposition: HOME / SELF CARE / HOMELESS Condition: Fair e-Prescriptions Ciprofloxacin Hcl (Cipro) 500 Mg Tab 1 TAB PO BID for 5 Days, #10 TAB 0 Refills Prov: REINALDO BERNAL NP 04/05/24 Discharged With: Self Critical Care Note Critical Care Time?: No Stability Stability form required: No Heart Score Heart Score: Heart Score Response (Comments) Value History N/A 0 EKG N/A 0 Age N/A 0 Risk Factors N/A 0 Troponin N/A 0 Total 0 REINALDO BERNAL NP Apr 05, 2024 10:50
[2024-04-05 11:38] VITALS: BP 136/62; PULSE 84; RESP 18; TEMP 98.3; O2SAT 98
[2024-04-05 11:56] LABS: Basophils # (auto) 0.1 10 ^3/uL (0-0.2); Basophils % (auto) 0.6 % (0.0-2.0); Eosinophils # (auto) 0.1 10 ^3/uL (0-0.8); Eosinophils % (auto) 0.7 % (0.0-7.0); Hematocrit 43.7 % (36.0-46.0); Hemoglobin 14.4 g/dL (12.2-16.2); Lymphocytes # (auto) 1.7 10 ^3/uL (0.4-5.4); Lymphocytes % (auto) 16.3 % (10.0-50.0); Mean Corpuscular Hemoglobin 28.8 pg (28.0-32.0); Mean Corpuscular Volume 87.3 fL (80.0-100.0); Monocytes # (auto) 0.9 10 ^3/uL (0-1.3); Monocytes % (auto) 8.1 % (0.0-12.0); Neutrophils # (auto) 7.8 10 ^3/uL (1.6-8.6); Neutrophils % (auto) 74.3 % (37.0-80.0); Nucleated Red Blood Cells % 0.4 %; Platelet Count (auto) 289 10^3/uL (140-450); Red Blood Cells 5.01 10^6/uL (4.0-5.20); Red Cell Distribution Width 15.7 % (11.8-14.3); White Blood Cell 10.6 10^3/uL (4.4-10.8)
[2024-04-05 12:04] LABS: Urine Bacteria None Seen /hpf (None Seen)
[2024-04-05 12:09] LABS: Anion Gap 8 (5-15); Carbon Dioxide 22 mmol/L (20-31); Chloride 106 mmol/L (98-107)
[2024-04-05 12:10] LABS: Calcium 10.3 mg/dL (8.7-10.4)
[2024-04-05 12:15] LABS: Glucose 89 mg/dL (74-106)
[2024-04-05 12:20] LABS: Urine Blood Negative /uL (Negative); Urine Clarity Clear (Clear); Urine Color Colorless (Yellow); Urine Protein, UAD Negative (Negative); Urine Specific Gravity 1.007 (1.001-1.035); Urine Squamous Epithelial Cell FEW /hpf (<5); Urine Urobilinogen Normal (Negative); Urine WBC 15 /HPF (0-5); Urine pH 6.5 (5.0-9.0)
[2024-04-05 12:23] LABS: Blood Urea Nitrogen 7 mg/dL (9-23); Sodium 136 mmol/L (136-145)
[2024-04-05] MEDS ORDERED: BACDST PO (12:46)
[2024-04-05] MEDS: cefTRIAXone SOD 1,000 MG VL IM ONE (13:04)
[2024-04-05] MEDS ORDERED: CIPR-173 PO (13:23)
== END 2024-04-05 14:00 | disposition home or self-care (01) ==
LOC: ER 09:39
DX: N39.0 Urinary tract infection, site not specified (principal); Z79.899 Other long term (current) drug therapy
CPT/HCPCS: 36415; 51702; 80048; 81001; 85025; 96372